=== PATIENT | female | born 1990 | race Caucasian/White ===

== ENCOUNTER 2021-11-20 12:03 | Day surgery (SDC) | payer OTHER ==
[2021-11-20] VITALS (8 sets, daily range): BP systolic 106–122; BP diastolic 53–74
[~2021-11-20] VITALS: Ht 162.6 cm; Wt 72.0 kg
[~2021-11-20 12:03] MED LIST: cefazolin/dext.iso 2gm/50ml IV ONE; famotidine 20mg tablet PO ONE; ringers solution, lacted 1,000 ML IV SCH
[2021-11-20] MEDS ORDERED: fentaNYL/PF 50MCG/1 ML 2ML syringe IV PRN ×2 (12:20)
[2021-11-20] MEDS ORDERED: hydrALAZINE 20mg/ml inj. IV PRN (12:20)
[2021-11-20] MEDS ORDERED: labetalol 20mg/4ml (5mg/ml) syringe IV PRN (12:20)
[2021-11-20] MEDS ORDERED: morphine 2 MG/ML inj. syringe IV PRN ×2 (12:20→15:25)
[2021-11-20] MEDS ORDERED: ondansetron/PF 4mg/2ml inj IV PRN ×2 (12:20→15:25)
[2021-11-20] MEDS ORDERED: morphine 4 MG/ML inj SYRINge IV PRN ×2 (12:20→15:25)
[2021-11-20] MEDS ORDERED: ringers solution, lacted 1,000 ML IV SCH ×2 (12:20→15:25)
[2021-11-20 13:46] LABS: BASOPHILS % (AUTO) 0.7 % (0-1); EOSINOPHILS % (AUTO) 0.7 % (0-6); LYMPHOCYTES # (AUTO) 2.1 X10'3 (1.1-4.8); LYMPHOCYTES % (AUTO) 33.7 % (21-51); MEAN CORPUSCULAR HGB CONC 34.1 g/dL (33.0-36.5); MEAN PLATELET VOLUME 8.1 FL (7.4-10.4); MONOCYTES # (AUTO) 0.6 X10'3 (0-0.9); MONOCYTES % (AUTO) 10.4 % (2-12); NEUTROPHILS # (AUTO) 3.4 X10'3 (1.8-7.7); NEUTROPHILS % (AUTO) 54.5 % (42-75); PRE OP HEMATOCRIT 39.3 % (35.0-45.0); PRE OP HEMOGLOBIN 13.4 g/dL (12.0-16.0); PRE OP PLATELET COUNT 315 X10'3 (140-440); RED BLOOD COUNT 4.32 X10'6 (4.20-5.60); RED CELL DISTRIBUTION WIDTH 13.2 % (11.5-14.5)
[2021-11-20] MEDS ORDERED: MIDAZolam 1 MG/ML 5ML VIAL ONE ×2 (14:32→15:36)
[2021-11-20] MEDS ORDERED: fentaNYL/PF 50MCG/1 ML 2ML syringe ONE ×2 (14:32→15:16)
[2021-11-20] MEDS ORDERED: ROPIVAcaine 0.5% (5mg/ml) 30ml vial ONE (14:33)
[2021-11-20] MEDS ORDERED: dexamethasone sod phosphate 4mg/ml inj. ONE (14:33)
[2021-11-20] MEDS ORDERED: LIDOcaine 2% (20mg/ml) 5ml vial ONE ×2 (15:03)
[2021-11-20] MEDS ORDERED: propofol inj 20 ML IV ONE (15:08)
[2021-11-20] MEDS ORDERED: BUPIVAcaine/PF 2.5 mg/ml (0.25%) 30ml vial ONE (15:10)
[2021-11-20] MEDS ORDERED: proCHLORperazine 10 MG/2 ml inj IV PRN (15:25)
[2021-11-20] MEDS ORDERED: meperidine/PF 25mg/ml syringe IV PRN ×3 (15:25)
--- NOTE | 2021-11-20 16:03 | NUR ---
Received from OR via , accompanied by Anesthesiologist DR BHATT and report given by Anesthesiolgist. PTPRESENTS WITH 20G LEFT HAND. DRESSING ON RIGHT WRIST DRY AND INTACT, VSS.
--- NOTE | 2021-11-20 16:43 | NUR ---
ALL DC CRITERIA MET. PT IV DC'D WITH CANULA INTACT. DC INSTRUCTIONS REVIEWED WITH PT, PT VERBALIZED UNDERSTANDING WITH NO FURTHER QUESTIONS AT THIS TIME. RX CALLED INTO [facility]ARMACY [facility] ON [address]. PT WAS GIVE XRAYS BY DR TONG TO TAKE HOME. PT WHEELED OUT I WHEELCHAIR TO [employer]IVATE [employer]HICLE, Addendum: 11/20/21 at 1653 by Ban Cerna RN, RN Amended: Links added.
== END 2021-11-20 16:43 | disposition home or self-care (01) ==
LOC: PRE-OP 12:03 → PAS 16:43
PROVIDERS: ATTEND Orthopaedic Surgery Hand Surgery
DX: S52.571A Other intraarticular fracture of lower end of right radius, initial encounter for closed fracture (principal); G89.18 Other acute postprocedural pain; G43.909 Migraine, unspecified, not intractable, without status migrainosus; Z20.822 Contact with and (suspected) exposure to COVID-19; Z79.899 Other long term (current) drug therapy; Z87.891 Personal history of nicotine dependence; Z72.89 Other problems related to lifestyle; R97.8 Other abnormal tumor markers; X58.XXXA Exposure to other specified factors, initial encounter; Y93.23 Activity, snow (alpine) (downhill) skiing, snowboarding, sledding, tobogganing and snow tubing; Y92.89 Other specified places as the place of occurrence of the external cause; Y99.8 Other external cause status
CPT/HCPCS: 25609; 36415; 64417; 76942; 82948; 84702; 85025; 87635; C1713; C9803; J0690; J1100; J2250; J2704; J2795; J3010; J3490; J7030; J7120; Z7506; Z7508; Z7512; A4215; A4615; A6449; A7000